=== PATIENT | male | born 1950 | race Asian ===

== ENCOUNTER 2021-11-29 04:45 | Inpatient (IN) | payer MEDICAID ==
[~2021-11-29] VITALS: Ht 167.6 cm; Wt 83.9 kg
[2021-11-29 04:51] VITALS: BP_SYST 173
[2021-11-29] MEDS ORDERED: NS 500 ML IV ONE ×2 (05:00→07:45)
[2021-11-29] MEDS ORDERED: dilTIAZem HCL IVP 5 MG/ML VIAL IVP ONE ×3 (06:15→11:30)
[2021-11-29 06:28] LABS: ANION GAP 4 (5-15); CALCIUM 8.8 mg/dL (8.4-11.0); CHLORIDE 107 mmol/L (98-107); CREATININE 0.92 mg/dL (0.55-1.30); GLUCOSE 141 mg/dL (70-99); POTASSIUM 3.1 mmol/L (3.5-5.1); UREA NITROGEN, BLOOD 20 mg/dL (8-21)
[2021-11-29 06:31] LABS: GFR AFRICAN AMERICAN 105 mL/min (>90)
[2021-11-29 06:34] LABS: ALANINE AMINOTRANSFERASE 32 U/L (12-78); ALBUMIN 3.6 g/dL (3.4-4.8); ASPARTATE AMINOTRANSFERASE 18 U/L (10-37); LIPASE 99 U/L (73-393); TOTAL BILIRUBIN 0.6 mg/dL (0.0-1.0)
[2021-11-29 06:36] LABS: HEMOGLOBIN 15.7 g/dL (14.0-18.0)
[2021-11-29 06:38] LABS: INR 0.9 (0.80-1.20); PROTHROMBIN TIME 9.8 SECS (9.5-12.5)
[2021-11-29 07:02] LABS: BASOPHILS % (AUTO) 0.3 % (0.0-2.0); EOSINOPHILS # (AUTO) 0.2 K/uL (0.0-0.4); EOSINOPHILS % (AUTO) 2.8 % (0.0-4.0); HEMATOCRIT 46.7 % (36-54); LYMPHOCYTES # (AUTO) 1.7 K/uL (1.0-5.5); MEAN CORPUSCULAR HEMOGLOBIN 30 pg (27-31); MEAN CORPUSCULAR HGB CONC 34 % (32-36); MEAN CORPUSCULAR VOLUME 89 fL (79.0-98.0); MONOCYTES # (AUTO) 0.4 K/uL (0.0-1.0); MONOCYTES % (AUTO) 6.2 % (1.7-9.3); NEUTROPHILS # (AUTO) 4.1 K/uL (1.8-7.7); NEUTROPHILS % (AUTO) 63.7 % (40.0-70.0); PLATELET COUNT (AUTO) 131 K/uL (130-430); RED BLOOD CELL COUNT(AUTO) 5.24 MIL/uL (4.2-6.2); RED CELL DISTRIBUTION WIDTH 13.9 % (9.0-15.0); WHITE BLOOD COUNT (AUTO) 6.4 K/uL (4.8-10.8)
[2021-11-29 07:20] LABS: BILIRUBIN,URINE NEGATIVE (NEGATIVE); CLARITY/URINE CLEAR (CLEAR); COLOR,URINE YELLOW (YELLOW); GLUCOSE,URINE 1+ (NEGATIVE); KETONES,URINE NEGATIVE (NEGATIVE); LEUKOCYTE ESTERASE ,URINE NEGATIVE (NEGATIVE); NITRITE, URINE NEGATIVE (NEGATIVE); PROTEIN URINE NEGATIVE (NEGATIVE); UROBILINOGEN,URINE 0.2 (0.2-1.0)
[2021-11-29 07:32] LABS: BLOOD, URINE TRACE (NEGATIVE)
[2021-11-29] MEDS ORDERED: POTASSIUM CHLORIDE 20 MEQ/PKT PACKET PO ONE (07:45)
[2021-11-29 07:47] LABS: BACTERIA,URINE RARE /HPF (None Seen); RBC,URINE 0-3 /HPF (0-3); WBC,URINE 0-3 /HPF (0-3)
[2021-11-29 07:48] LABS: MUCUS,URINE 1+ /LPF (None Seen)
[2021-11-29] MEDS ORDERED: dilTIAZem HCL IVP 5 MG/ML VIAL ONE (11:22)
[2021-11-29] MEDS ORDERED: ACETAMINOPHEN 325 MG TABLET PO PRN ×2 (12:30→13:15)
[2021-11-29] MEDS ORDERED: ONDANSETRON HCL 4 MG/2 ML VIAL IVP PRN (12:30)
[2021-11-29] MEDS ORDERED: HYDROcodone/ACETAMIN 10-325 MG TAB PO PRN (12:30)
[2021-11-29] MEDS ORDERED: HYDROcodone/ACETAMIN 5-325 MG TAB (NORCO/ VICODIN) PO PRN (12:30)
[2021-11-29] MEDS ORDERED: LORazepam 2 MG/ML VIAL IVP PRN (12:30)
[2021-11-29] MEDS ORDERED: MULTIVITAMINS TAB 1 TABLET PO ONE (13:15)
[2021-11-29] MEDS ORDERED: NORMAL SALINE 5 ML DISP.SYRIN IVF SCH (14:00)
[2021-11-29 14:32] VITALS: BP_SYST 145
[2021-11-29 16:24] VITALS: BP_SYST 145
[2021-11-29] MEDS ORDERED: LEVE750T4 PO (16:54)
[2021-11-29] MEDS: NORMAL SALINE 5 ML DISP.SYRIN IVF SCH ×2 (17:11→22:35)
[2021-11-29 20:00] VITALS: BP_SYST 146
[2021-11-30] VITALS: BP_SYST 150
[2021-11-30] MEDS: NORMAL SALINE 5 ML DISP.SYRIN IVF SCH ×3 (05:16→20:27)
[2021-11-30 06:51] LABS: BASOPHILS % (AUTO) 0.3 % (0.0-2.0); EOSINOPHILS # (AUTO) 0.2 K/uL (0.0-0.4); EOSINOPHILS % (AUTO) 2.5 % (0.0-4.0); HEMATOCRIT 43.4 % (36-54); HEMOGLOBIN 14.8 g/dL (14.0-18.0); LYMPHOCYTES # (AUTO) 1.4 K/uL (1.0-5.5); LYMPHOCYTES % (AUTO) 22.2 % (20.5-51.5); MEAN CORPUSCULAR HEMOGLOBIN 30 pg (27-31); MEAN CORPUSCULAR HGB CONC 34 % (32-36); MEAN CORPUSCULAR VOLUME 88 fL (79.0-98.0); MONOCYTES # (AUTO) 0.5 K/uL (0.0-1.0); MONOCYTES % (AUTO) 7.9 % (1.7-9.3); NEUTROPHILS # (AUTO) 4.2 K/uL (1.8-7.7); NEUTROPHILS % (AUTO) 67.1 % (40.0-70.0); PLATELET COUNT (AUTO) 116 K/uL (130-430); RED BLOOD CELL COUNT(AUTO) 4.92 MIL/uL (4.2-6.2); RED CELL DISTRIBUTION WIDTH 13.9 % (9.0-15.0); WHITE BLOOD COUNT (AUTO) 6.3 K/uL (4.8-10.8)
[2021-11-30 07:12] LABS: CALCIUM 8.4 mg/dL (8.4-11.0); CREATININE 0.95 mg/dL (0.55-1.30); POTASSIUM 3.8 mmol/L (3.5-5.1)
[2021-11-30 08:00] VITALS: BP_SYST 141
[2021-11-30] MEDS ORDERED: dilTIAZem HCL IVP 5 MG/ML VIAL IVP PRN (09:00)
[2021-11-30] MEDS ORDERED: levETIRAcetam 500 MG TABLET PO SCH (09:00)
[2021-11-30] MEDS ORDERED: MULTIVITAMINS TAB 1 TABLET PO SCH (09:00)
[2021-11-30] MEDS ORDERED: LORazepam 2 MG/ML VIAL IM ONE (09:00)
[2021-11-30] MEDS ORDERED: levETIRAcetam 500 MG in NS 100 ML IV ONE (10:00)
[2021-11-30] MEDS ORDERED: LORazepam 2 MG/ML VIAL IVP PRN (10:15)
[2021-11-30 11:48] VITALS: BP_SYST 112
[2021-11-30 16:00] VITALS: BP_SYST 110
[2021-11-30] MEDS ORDERED: levETIRAcetam 1,000 MG in NS 100 ML IV SCH (21:00)
[2021-11-30] MEDS ORDERED: levETIRAcetam 500 MG in NS 100 ML IV SCH (21:00)
[2021-11-30 22:19] VITALS: BP_SYST 159
== END 2021-11-30 23:09 | disposition home health service (06) | DRG 203 ==
LOC: SED 04:45 → STU 11:48
PROVIDERS: ADMIT Preventive Medicine Preventive Medicine/Occupational Environmental Medicine; ATTEND Preventive Medicine Preventive Medicine/Occupational Environmental Medicine
DX: R07.89 Other chest pain (principal); E87.20 Acidosis, unspecified; E87.8 Other disorders of electrolyte and fluid balance, not elsewhere classified; E86.0 Dehydration; G81.91 Hemiplegia, unspecified affecting right dominant side; I48.92 Unspecified atrial flutter; G40.909 Epilepsy, unspecified, not intractable, without status epilepticus; E87.6 Hypokalemia; I89.0 Lymphedema, not elsewhere classified; Z20.822 Contact with and (suspected) exposure to COVID-19; R73.9 Hyperglycemia, unspecified; R47.1 Dysarthria and anarthria; Z79.899 Other long term (current) drug therapy; Z87.820 Personal history of traumatic brain injury
CPT/HCPCS: 36415; 70450-TC; 71045; 76376; 80048; 80053; 81000; 82962; 83605; 83690; 83735; 83880; 84100; 84484; 85025; 85610-TC; 85730-TC; 87040; 87086; 93005; 93306; 93971; 96361; 96374; 96376; 99285; G0378; G0482; J1953; J2060; J3490; J7040; Q9967